=== PATIENT | male | born 2000 | race Caucasian/White ===

== ENCOUNTER 2018-08-15 11:43 | Emergency (ER) | payer OTHER ==
[~2018-08-15] VITALS: Ht 177.8 cm; Wt 111.4 kg
[2018-08-15 12:46] VITALS: BP 147/77
== END 2018-08-15 16:02 | disposition home or self-care (01) ==
LOC: EMS 11:44
DX: Z77.21 Contact with and (suspected) exposure to potentially hazardous body fluids (principal)
CPT/HCPCS: 80074; 84460; 86592; 86706; 99284